=== PATIENT | female | born 1990 | race African-American/Black ===

== ENCOUNTER 2018-09-09 20:42 | Emergency (ER) | payer BC ==
[~2018-09-09] VITALS: Ht 170.2 cm; Wt 81.7 kg
[~2018-09-09 20:42] MED LIST: KEFLEX500 MG PO
[2018-09-09] MEDS ORDERED: NIFEDIPINE ER30 M1 PO (21:02)
[2018-09-09 21:51] VITALS: BP 194/126
== END 2018-09-09 21:51 | disposition home or self-care (01) ==
LOC: ER 20:42
DX: B34.9 Viral infection, unspecified (principal)